=== PATIENT | female | born 1965 | race African-American/Black ===

== ENCOUNTER 2017-05-25 22:59 | Emergency (ER) | payer OTHER ==
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
[~2017-05-25 22:59] MED LIST: ALBUTEROL17 GM INH; AMBIEN PO; AMITRYPTYLINE PO; ATROVENT HFA12.9 GM INH; CHEST CONG100 MG/51 PO; CHROMAGEN FA1 UDCAP PO; CIPRO PO; COLACE PO; COMBIVENT U/D3 M2 INH; COMBIVENT14.7 GM INH; CYMBALTA PO; CYMBALTA30 MG PO; DICYCLOMINE HCL20 MG PO; FIORINAL 50-321 EACH PO; FLAGYL PO; FLEXERIL; FLEXERIL10 MG PO; IBUPROFEN800 MG PO; KCL PO; KLONOPIN PO; KLONOPIN1 MG PO; LEVAQUIN PO; LORTAB 7.5-5001 TAB; MILK OF MAGNESIA PO; MULTI-DAY VITAM1 TAB PO; MULTI-VITAMIN1 TAB PO; NEXIUM PO; NICOTINE TRANSD14 MG EXT; NORCO 10-325 TA1 TAB PO; NORCO 10/325 TA1 TAB PO; NORCO 7.5/325 T1 TAB; NORVASC PO; NORVASC10 MG PO; OXYCODONE15 M1 PO; PERCOCET7.5 PO; PHENERGAN PO; PHENERGAN25 MG PO; PREDNISONE PO; PRILOSEC; TOPAMAX PO; VICODIN PO; ZITHROMAX PO; [UNRECOGNIZED DRUG - OTHER]
== END 2017-05-26 01:09 | disposition home or self-care (01) ==
LOC: CED 22:59
DX: S33.5XXA Sprain of ligaments of lumbar spine, initial encounter (principal); I10 Essential (primary) hypertension; F17.200 Nicotine dependence, unspecified, uncomplicated; Z90.710 Acquired absence of both cervix and uterus; Z88.8 Allergy status to other drugs, medicaments and biological substances; Z88.5 Allergy status to narcotic agent; V49.40XA Driver injured in collision with unspecified motor vehicles in traffic accident, initial encounter
CPT/HCPCS: 72100; 73502; 96372; 99284; J1885